=== PATIENT | male | born 1995 | race Two or more races ===

== ENCOUNTER 2022-11-22 09:23 | Emergency (ER) | payer MEDICAID ==
[~2022-11-22] VITALS: Ht 182.9 cm; Wt 65.0 kg
[2022-11-22 09:41] VITALS: BP 120/76; O2SAT 99
[2022-11-22] MEDS ORDERED: IBUP-2030 MT (10:21)
[2022-11-22] MEDS ORDERED: HYDR-4233 TP (10:21)
[2022-11-22 11:10] VITALS: PULSE 78; RESP 16; TEMP 97.8
== END 2022-11-22 11:12 | disposition home or self-care (01) ==
LOC: ER 09:23
DX: S00.261A Insect bite (nonvenomous) of right eyelid and periocular area, initial encounter (principal); W57.XXXA Bitten or stung by nonvenomous insect and other nonvenomous arthropods, initial encounter; Y93.89 Activity, other specified; Y92.89 Other specified places as the place of occurrence of the external cause; Y99.8 Other external cause status
CPT/HCPCS: 99282